=== PATIENT | female | born 1980 | race Caucasian/White ===

== ENCOUNTER 2023-04-04 11:36 | Outpatient (CLI) | payer BC, OTHER, SELFPAY ==
[2023-04-04 13:45] LABS: Vitamin D 25 Hydroxy 24.4 ng/mL
[2023-04-07 05:51] LABS: FSH 32.2 mIU/mL (***)
[2023-04-12 00:47] LABS: Estradiol, Ultrasensitive 14 pg/mL
== END 2023-04-04 11:37 | disposition home or self-care (01) ==
LOC: ANHLAB 11:40
PROVIDERS: Visit Provider Student in an Organized Health Care Education/Training Program
DX: R23.2 Flushing (principal)
CPT/HCPCS: 36415; 82306; 82670; 83001; 84443